=== PATIENT | male | born 1990 | race Caucasian/White ===

== ENCOUNTER 2020-02-17 15:14 | Emergency (ER) | payer MEDICAID, SELFPAY ==
--- NOTE | ~2020-02-17 | XR_ITS ---
XR finger 1st LT min 2V DATE: 02/17/2020 15:44 INDICATION: Nail through the distal first digit TECHNIQUE: 3 views of left first digit COMPARISON: None FINDINGS: A large nail extends through the soft tissues of the distal portion of the first digit, ski rting along the anterior aspect of the lateral neck and the tuft of the distal phalanx. Note tuft pen etration or fracture is evident. No dislocation at the first metacarpophalangeal or interphalangeal j oints. No other radiopaque foreign body. IMPRESSION: Soft tissue foreign body; no fracture or dislocation detected Reviewed, dictated and finalized at location A.
[2020-02-17 15:19] VITALS: BP 172/91; PULSE 101; RESP 18; TEMP 36.9; O2SAT 100
[2020-02-17] MEDS: TETANUS,DIPHTHERIA,AC PERTUSSIS ADULT (0.5 ML) BOOSTRIX IM (15:50)
[2020-02-17] MEDS: ceFAZolin SODIUM 1 GM VIAL IM (15:50)
--- NOTE | 2020-02-17 15:51 | ED.UPPEXIN ---
HPI - Extremity Injury (Upper) General Chief Complaint: Extremity Injury, Upper Stated Complaint: nail in thumb Time Seen by Provider: 02/17/20 15:21 Source: patient Mode of arrival: ambulatory Limitations: no limitations History of Present Illness HPI narrative: This is a 29 year old male that presents to the ER for nailgun injury sustained just prior to arrival. Reports he shot the left thumb with a nail accidentally. He is unsure of his last tetanus vaccine. Denies decreased ROM or numbness. Related Data Allergies Allergy/AdvReac Type Severity Reaction Status Date / Time BLEACH Allergy Unknown RASH Uncoded 01/27/19 18:35 Review of Systems Review of Systems: Narrative: CONSTITUTIONAL: Denies fever SKIN: Reports nailgun injury MUSCULOSKELETAL: Reports myalgia. NEUROLOGIC: Denies numbness All systems reviewed & are unremarkable except as noted in HPI and below PMFSH Social History Social History (Updated 02/17/20 @ 15:54 by Ofe Wang PA-C) Smoking status: Current every day smoker Substance use: never Exam Narrative: Exam Narrative: GENERAL: Well-appearing, well-nourished, and in no acute distress. HEAD: Normocephalic, atraumatic. EYES: EOMI. EXTREMITIES: Normal range of motion. No edema. Left thumb distal phalanx soft tissue with nail in it insertion point at the radial aspect proximally and exit distally toward the ulnar aspect SKIN: Warm, dry, no rash. NEURO: No focal deficits. Alert and oriented x3. PSYCH: Normal mood and affect Course Consultations Consultation #1: Spoke with Dr. Rodas about patient and work-up will follow-up in clinic Date: 02/17/20 Time: 18:33 Vital Signs Vital signs: Vital Signs Temperature 98.4 F 02/17/20 15:19 Pulse Rate 101 H 02/17/20 15:19 Respiratory Rate 18 02/17/20 15:19 Blood Pressure 172/91 H 02/17/20 15:19 Pulse Oximetry 100 02/17/20 15:19 Temperature 98.4 F 02/17/20 15:19 Pulse Rate 101 H 02/17/20 15:19 Respiratory Rate 18 02/17/20 15:19 Blood Pressure 172/91 H 02/17/20 15:19 Pulse Oximetry 100 02/17/20 15:19 Procedures Foreign Body Removal Foreign Body #1: Foreign Body Removal Date: 02/17/20 Foreign Body Removal Time: 18:32 Site: left and upper extremity Description of foreign body: other (nail) Technique: manual removal Confirmed by:: direct visualization and radiograph Complications: none Post-procedure exam: awake, alert Neurovascular: normal distal pulse, normal capillary fill and distal motor function normal Foreign Body Removal Narrative: Successful removal of nail in the left first finger MDM - Extremity Injury (Upper) MDM Narrative Medical decision making narrative: Patient presents the emergency department for nail gun injury today. Nail successfully removed from the thumb. Finger x-ray is without bony abnormalities. Patient's wound was thoroughly irrigated. He was updated on tetanus. He was given a dose of IM antibiotic in the ED. He will be sent home on oral antibiotics. Spoke with Dr. Rodas about patient and work-up will follow-up in clinic Imaging Data Radiologist's impression: ITS Impressions Finger X-Ray 02/17/20 15:50 IMPRESSION: Soft tissue foreign body; no fracture or dislocation detected Critical Care Time Critical Care Time Critical Care Time: No Discharge Plan Discharge Clinical Impression: Foreign body of finger of left hand Qualifiers: Encounter type: initial encounter Qualified Code(s): S60.459A - Superficial foreign body of unspecified finger, initial encounter Patient Disposition: Home, Self-Care Condition: Stable Instructions: Antibiotic Form, Puncture Wound (ED) Additional Instructions: Return to the emergency department if you experience fever, redness or swelling of your wound, abnormal drainage from your wound, or any other symptoms that are concerning to you. Take antibiotic as prescribed.
[2020-02-17 18:57] VITALS: BP 145/91; PULSE 104; RESP 19; O2SAT 100
== END 2020-02-17 18:59 | disposition home or self-care (01) ==
PROVIDERS: Emergency Provider Emergency Medicine
DX: S61.042A Puncture wound with foreign body of left thumb without damage to nail, initial encounter (principal); F17.200 Nicotine dependence, unspecified, uncomplicated; Z23 Encounter for immunization; W29.4XXA Contact with nail gun, initial encounter
CPT/HCPCS: 73140; 90471; 90715; 96372; 99283; A9270; J0690

== ENCOUNTER 2021-11-17 15:57 | Emergency (ER) | payer BC, SELFPAY ==
[2021-11-17 16:33] VITALS: BP 120/78; PULSE 100; RESP 20; TEMP 36.7; O2SAT 100
--- NOTE | 2021-11-17 16:49 | ED.GENADULT ---
HPI - General Adult General Chief complaint: Unspecified Stated complaint: med refill Time Seen by Provider: 11/17/21 16:17 Source: patient and RN notes reviewed Mode of arrival: ambulatory Limitations: no limitations History of Present Illness HPI narrative: Patient presents today requesting a refill of his medication. He just got out of the [facility] yesterday and needs a refill of his medication until he can make an appointment with a psychiatrist or primary care provider. Patient takes Remeron 30 mg at night, BuSpar 15 mg twice daily, and Zyprexa 15 mg daily. These doses were verified with the nurse at the longterm. Also requesting a prescription for some cold tar shampoo for his psoriasis on his face. Diagnoses include Bipolar 2 disorder, and psychosis NOS. MD complaint: Medication refill Related Data Home Medications Medication Instructions Recorded Confirmed buspirone [BuSpar] 15 mg PO BID 11/17/21 11/17/21 mirtazapine [Remeron] 30 mg PO HS 11/17/21 11/17/21 olanzapine [Zyprexa] 15 mg PO DAILY 11/17/21 11/17/21 Allergies Allergy/AdvReac Type Severity Reaction Status Date / Time BLEACH Allergy Unknown RASH Uncoded 01/27/19 18:35 Review of Systems Review of Systems: CONSTITUTIONAL: Denies body aches, fever, chills, or sweats. EYES: Denies visual changes, redness, or discharge. ENT: Denies rhinorrhea, congestion, sore throat, or otalgia. CARDIOVASCULAR: Denies chest pain, palpitations, or edema. RESPIRATORY: Denies cough or dyspnea. GASTROINTESTINAL: Denies abdominal pain, nausea, vomiting, or diarrhea. GENITOURINARY: Denies dysuria or hematuria. SKIN: Denies rash, itching, or wounds. MUSCULOSKELETAL: Denies back pain, joint pain, or myalgia. NEUROLOGIC: Denies headache, numbness, tingling, or weakness. [facility] Past Medical History Medical History (Updated 11/17/21 @ 16:51 by Dafne Ritchie, YOSEF, BC) Bipolar 2 disorder Psoriasis Unspecified psychosis Social History Social History Smoking status: Current every day smoker Substance use: never Comments At time of signature, I have reviewed and agree with nursing past medical, surgical, social and family history unless otherwise noted. Please see nursing chart for further information. There is no relevant family history pertinent to the presenting complaint Exam Narrative: GENERAL: Well-appearing, well-nourished, and in no acute distress. HEAD: Normocephalic, atraumatic. EYES: EOMI. No redness or drainage. Conjunctivae normal. ENT: Mucous membranes pink and moist. NECK: Normal AROM. CHEST: No respiratory distress. EXTREMITIES: Normal range of motion. No edema. SKIN: Warm, dry, no rash. Capillary refill normal. Normal skin turgor. NEURO: No focal deficits. Alert and oriented x3. Gait steady. PSYCH: Normal affect. No signs of depression or anxiety. Course Course Level of Care: Express Care Visit Vital Signs Vital signs: Vital Signs Temperature 98.1 F 11/17/21 16:33 Pulse Rate 100 11/17/21 16:33 Respiratory Rate 20 11/17/21 16:33 Blood Pressure 120/78 11/17/21 16:33 Pulse Oximetry 100 11/17/21 16:33 Temperature 98.1 F 11/17/21 16:33 Pulse Rate 100 11/17/21 16:33 Respiratory Rate 20 11/17/21 16:33 Blood Pressure 120/78 11/17/21 16:33 Pulse Oximetry 100 11/17/21 16:33 Reviewed Medical Decision Making Differential Diagnosis Differential Diagnosis: Medication refill Vital Signs Vital Signs: Vital Signs Temperature 98.1 F 11/17/21 16:33 Pulse Rate 100 11/17/21 16:33 Respiratory Rate 20 11/17/21 16:33 Blood Pressure 120/78 11/17/21 16:33 Pulse Oximetry 100 11/17/21 16:33 Temperature 98.1 F 11/17/21 16:33 Pulse Rate 100 11/17/21 16:33 Respiratory Rate 20 11/17/21 16:33 Blood Pressure 120/78 11/17/21 16:33 Pulse Oximetry 100 11/17/21 16:33 Critical Care Time Critical Care Memo
[2021-11-17 16:56] VITALS: RESP 20
== END 2021-11-17 17:00 | disposition home or self-care (01) ==
PROVIDERS: Emergency Provider Nurse Practitioner
DX: Z76.0 Encounter for issue of repeat prescription (principal); F17.200 Nicotine dependence, unspecified, uncomplicated; F31.81 Bipolar II disorder
CPT/HCPCS: 99211; G0463

== ENCOUNTER 2022-09-16 12:06 | Emergency (ER) | payer BC, SELFPAY ==
[2022-09-16 14:40] VITALS: BP 145/82; PULSE 85; RESP 12; TEMP 36.4; O2SAT 100
--- NOTE | 2022-09-16 14:42 | ED.GENADULT ---
HPI - General Adult General Chief complaint: Urogenital-Male Stated complaint: std testing Time Seen by Provider: 09/16/22 14:43 Source: patient Mode of arrival: ambulatory Limitations: no limitations History of Present Illness HPI narrative: 13-year-old male patient presents to the [facility] with request for STD evaluation. Patient states that his female partner recently told him that she was diagnosed with Trichomonas. Patient states he does not have any symptoms today but would like to be tested. Patient states he had a full panel STD testing about a year ago and everything came up negative. Patient's states that his female partner has been his only partner for the last 2 years. Patient states he only has intercourse with movement. Related Data Allergies Allergy/AdvReac Type Severity Reaction Status Date / Time No Known Allergies Allergy Verified 09/16/22 14:48 Review of Systems Review of Systems: CONSTITUTIONAL: Denies fever, chills, or sweats. EYES: Denies visual changes, redness, or discharge. ENT: Denies rhinorrhea, congestion, sore throat, or otalgia. CARDIOVASCULAR: Denies chest pain, palpitations, or edema. RESPIRATORY: Denies cough or dyspnea. GASTROINTESTINAL: Denies abdominal pain, nausea, vomiting, or diarrhea. GENITOURINARY: Denies dysuria or hematuria. SKIN: Denies rash or itching. MUSCULOSKELETAL: Denies back pain, joint pain, or myalgia. NEUROLOGIC: Denies headache, numbness, or weakness. PSYCHIATRIC: Denies anxiety or depression. PMFSH Past Medical History Medical History Bipolar 2 disorder Psoriasis Unspecified psychosis Social History Social History Smoking status: Current every day smoker Substance use: never Comments At the time of my signature I agree with nursing past medical history, surgical, social, and family history. There is no relevant family history pertinent to the presenting complaint. Exam Narrative: GENERAL: Well-appearing, well-nourished, and in no acute distress. HEAD: Normocephalic, atraumatic. EYES: PERRLA and EOMI. ENT: Nares clear, no rhinorrhea or epistaxis. Mucous membranes moist. NECK: Supple. No lymphadenopathy CHEST: Clear to auscultation. No respiratory distress. HEART: Regular rate and rhythm. No murmur heard. Normal peripheral pulses. ABDOMEN: Soft, nontender, nondistended, normal active bowel sounds. No CVA tenderness on percussion EXTREMITIES: Normal range of motion. No edema. SKIN: Warm, dry, no rash. NEURO: No focal deficits. Alert and oriented x3. Course Course Level of Care: Express Care Visit Vital Signs Vital signs: Vital signs reviewed. Medical Decision Making MDM Narrative Medical decision making narrative: Discussed with patient that we will go ahead and test him today for gonorrhea, chlamydia and Trichomonas. Discussed with him we will go ahead and give him treatment for all and we will call him with the results regardless if they are negative or positive. Patient verbalized understanding and is in agreement with plan of care. Differential Diagnosis Differential Diagnosis: Differential diagnosis: Uncomplicated lower UTI, uncomplicated UTI, polynephritis, penile trauma,balanoposthitis, phimosis, paraphimosis, testicular torsion, epididymitis, prostatitis, varicocele, spermatocele, hydrocele, hernia. Gonorrhea, chlamydia, Trichomonas, bacterial vaginosis, herpes, HIV, yeast infection, urinary tract infection. Critical Care Time Critical Care Time Critical Care Time: No Discharge Plan Discharge Clinical Impression: Concern about sexually transmitted disease in male without diagnosis Patient Disposition: Home, Self-Care Condition: Stable Instructions: Antibiotic Form, Sexually Transmitted Diseases (ED) Additional Instructions: Please do not engage in sexual activity for at least 7 days after being treated for
[2022-09-16] MEDS: cefTRIAXone 500 MG, LIDOCAINE HCL 1% LOCAL INJ 1 ML IM (15:01)
== END 2022-09-16 15:14 | disposition home or self-care (01) ==
PROVIDERS: Emergency Provider Nurse Practitioner Family
DX: Z20.2 Contact with and (suspected) exposure to infections with a predominantly sexual mode of transmission (principal); F17.290 Nicotine dependence, other tobacco product, uncomplicated; L40.9 Psoriasis, unspecified
CPT/HCPCS: 87491; 87591; 87661; 96372; 99213; G0463; J0696

== ENCOUNTER 2022-10-14 10:41 | Emergency (ER) | payer BC, SELFPAY ==
[2022-10-14 11:01] VITALS: BP 140/83; PULSE 92; RESP 16; TEMP 36.6; O2SAT 99
--- NOTE | 2022-10-14 11:39 | ED.SKABFB ---
HPI - Skin/Abscess/Foreign Bdy General Chief complaint: Skin/Abscess/Foreign Body Stated complaint: non healing wounds Time Seen by Provider: 10/14/22 11:33 Source: patient, RN notes reviewed and old records reviewed Mode of arrival: ambulatory Limitations: no limitations History of Present Illness HPI narrative: 32-year-old male presents to the [facility] with a ?abscess? to the right 3rd finger, MCP joint Patient also has outer antecubital left area redness, swelling to an unhealing wound Related Data Allergies Allergy/AdvReac Type Severity Reaction Status Date / Time No Known Allergies Allergy Verified 10/14/22 11:35 Review of Systems Review of Systems: All systems reviewed & are unremarkable except as noted in HPI and below Constitutional: Constitutional: Reports no additional constitutional complaints Eyes: Eyes: Reports no additional eye complaints ENT: Reports system reviewed and no additional complaints, except as documented Cardiovascular: Cardiovascular: Reports no additional cardiovascular complaints, Denies chest pain and Denies dyspnea Respiratory: Respiratory: Reports no additional respiratory complaints, Denies chest congestion, Denies cough and Denies dyspnea Gastrointestinal: Gastrointestinal: Reports no additional gastrointestinal complaints, Denies abdominal pain, Denies nausea and Denies vomiting Musculoskeletal: Musculoskeletal: Reports no additional musculoskeletal complaints Integumentary/Breasts: Skin/Breast: Reports as per HPI and Reports erythema Neurologic: Reports system reviewed and no additional complaints, except as documented Psychiatric: Psychiatric: Reports no additional psychiatric complaints Allergic/Immunologic: Allergic/Immunologic: Reports no additional allergic/immunologic complaints PMFSH Past Medical History Medical History Bipolar 2 disorder Psoriasis Unspecified psychosis Social History Social History Smoking status: Current every day smoker Substance use: never Comments At the time of my signature, I reviewed and agree with the nursing past medical, surgical, social, and family history. There is no relevant family history pertinent to the patient complaint. Exam Const: General: cooperative, healthy appearing, comfortable, no acute distress, well developed, alert and well nourished Nutritional Appearance: well nourished Orientation/consciousness: patient oriented x3 Limitations: no limitations HENMT: Head: normal to inspection Ears: hearing grossly normal bilaterally and external ears normal Face/Nose/Sinus: Normal external nose present, Normal nares present, Normal nasal mucous membranes and turbinates present and normal facial exam Face and sinus: normal facial exam Mouth: Yes Normal oral and palatal mucosa present, Yes lip normal and Yes moist mucous membranes Throat: posterior oropharynx normal and uvula midline Eyes: General: appearance normal, both eyes and all related structures Alignment and Position: alignment normal Periorbital: periorbital findings normal Conjunctivae: conjunctivae normal Pupils: Equal, round and reactive pupils present EOM: EOMs intact bilaterally Neck: Neck: normal visual inspection, full ROM, no lymphadenopathy and no meningeal signs Chest: Chest palpation & inspection: normal inspection of the chest Resp: Effort & Inspection: normal respiratory effort and able to speak in complete sentences Auscultation: clear to auscultation bilaterally, no crackles, no rales, no rhonchi and no wheezes Cardio: Rate: regular rate Rhythm: regular rhythm Back/Spine/Pelvis: Cervical Spine: cervical ROM normal Thoracic/Lumbar Spine: No thoracic spinal tenderness Skin: General skin exam: normal color and no rashes or lesions noted Lesions: no lesions Rashes: no rashes Other: Erythema noted to the 3rd MCP right hand. dr Smooth
== END 2022-10-14 11:49 | disposition home or self-care (01) ==
PROVIDERS: Emergency Provider Nurse Practitioner
DX: L03.113 Cellulitis of right upper limb (principal); L03.114 Cellulitis of left upper limb; L40.9 Psoriasis, unspecified
CPT/HCPCS: 99213; G0463

== ENCOUNTER 2023-08-11 15:35 | Emergency (ER) | payer BC, SELFPAY ==
[2023-08-11 15:45] VITALS: BP 137/73; PULSE 91; RESP 16; TEMP 37.7; O2SAT 99
--- NOTE | 2023-08-11 16:12 | ED.GENADULT ---
HPI - General Adult General Chief complaint: Skin/Abscess/Foreign Body Stated complaint: Skin irritation Source: patient Mode of arrival: ambulatory Limitations: no limitations History of Present Illness HPI narrative: Patient presents for evaluation of skin lesions to bilateral upper extremities. 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 He has been scratching the areas and now has redness surrounding several the skin lesions. No fever, chills nausea, vomiting, purulent drainage. He is not diabetic. He had some keflex at home so he took a few doses over the past two days. Related Data Allergies Allergy/AdvReac Type Severity Reaction Status Date / Time No Known Allergies Allergy Verified 08/11/23 15:44 Review of Systems Review of Systems: CONSTITUTIONAL: Denies fever, chills, or sweats. EYES: Denies visual changes, redness, or discharge. ENT: Denies rhinorrhea, congestion, sore throat, or otalgia. CARDIOVASCULAR: Denies chest pain, palpitations, or edema. RESPIRATORY: Denies cough or dyspnea. GASTROINTESTINAL: Denies abdominal pain, nausea, vomiting, or diarrhea. GENITOURINARY: Denies dysuria or hematuria. SKIN: Reports abrasions to bilateral hands and forearms with some surrounding redness MUSCULOSKELETAL: Denies back pain, joint pain, or myalgia. NEUROLOGIC: Denies headache, numbness, dizziness, or weakness. PSYCHIATRIC: Denies anxiety or depression. PMFSH Past Medical History Medical History Bipolar 2 disorder Psoriasis Unspecified psychosis Surgical History Surgical History No pertinent past surgical history Family History Family History Mother Family history non-contributory Social History Social History Smoking status: Current every day smoker Tobacco type: cigarettes and smokeless tobacco Substance use: never Gender identity (if verbalized by the patient): Male Spiritual care concerns: No Exam Narrative: GENERAL: Well-appearing, well-nourished, and in no acute distress. HEAD: Normocephalic, atraumatic. EYES: PERRLA and EOMI. ENT: Nares clear, no rhinorrhea or epistaxis. Mucous membranes moist. Oropharynx without tonsillar hypertrophy exudate or other lesions. Bilateral TMs pearly [place] nonbulging NECK: Supple. No adenopathy or masses. No carotid bruits or JVD CHEST: Clear to auscultation. No respiratory distress. No wheezes rales or rhonchi HEART: Regular rate and rhythm. No murmur heard. Normal peripheral pulses. ABDOMEN: Soft, nontender, nondistended, normal active bowel sounds. EXTREMITIES: Normal range of motion. No edema. SKIN: there are several scabbed lesions noted to bilateral hands and forearms with small amount of surrounding erythema. NEURO: No focal deficits. Alert and oriented x3. PSYCH: Normal mood and affect. Course Course Emergency Course: This is a 32-year-old male who presented for evaluation of redness surrounding several abrasions in scabbed lesions. He has already taken a few doses of Keflex. I do not appreciate any fluctuance or purulent drainage. Will start doxycycline. Follow-up with primary provider. Go to the emergency department for worsening symptoms. Advised on wound care practices. Patient in agreement with plan of care. Level of Care: Express Care Visit Vital Signs Vital signs: Vital Signs Temperature 37.7 C H 08/11/23 15:45 Pulse Rate 91 08/11/23 15:45 Respiratory Rate 16 08/11/23 15:45 Blood Pressure 137/73 08/11/23 15:45 Pulse Oximetry 99 08/11/23 15:45 Oxygen Delivery Room Air 08/11/23 15:45 Temperature 37.7 C H 08/11/23 15:45 Pulse Rate 91 08/11/23 15:45 Respiratory Rate 16 08/11/23 15:45
== END 2023-08-11 16:13 | disposition home or self-care (01) ==
PROVIDERS: Emergency Provider Nurse Practitioner
DX: L98.9 Disorder of the skin and subcutaneous tissue, unspecified (principal); L08.9 Local infection of the skin and subcutaneous tissue, unspecified; F17.210 Nicotine dependence, cigarettes, uncomplicated; F17.290 Nicotine dependence, other tobacco product, uncomplicated; L40.9 Psoriasis, unspecified
CPT/HCPCS: 99213; G0463

== ENCOUNTER 2023-09-17 16:27 | Emergency (ER) | payer BC, SELFPAY ==
[2023-09-17 16:44] VITALS: BP 154/81; PULSE 105; RESP 16; TEMP 37.1; O2SAT 99
--- NOTE | 2023-09-17 17:16 | ED.EYEPROB ---
HPI - Eye Problem General Chief complaint: Eye Problems Stated complaint: Left Eye/Hands Irritation Time Seen by Provider: 09/17/23 17:17 Source: patient, RN notes reviewed and old records reviewed Mode of arrival: ambulatory Limitations: no limitations History of Present Illness HPI Narrative: 33-year-old male presents to the [facility] with complaints of left eye pain and hand wounds. Patient feels like he just got a piece of metal in his left eye. Multiple open wounds to his hands, no erythema. Patient reports that his fingers are mildly swollen and painful. Concern for infection. Reports that he was seen at [facility] ER last night, they would not do a CT of his head but did update his tetanus shot. Related Data Allergies Allergy/AdvReac Type Severity Reaction Status Date / Time No Known Allergies Allergy Verified 09/17/23 16:59 Review of Systems Review of Systems: All systems reviewed & are unremarkable except as noted in HPI and below Constitutional: Constitutional: Reports no additional constitutional complaints Eyes: Eyes: Reports as per HPI ENT: Reports system reviewed and no additional complaints, except as documented Cardiovascular: Cardiovascular: Reports no additional cardiovascular complaints, Denies chest pain and Denies dyspnea Respiratory: Respiratory: Reports no additional respiratory complaints, Denies chest congestion, Denies cough and Denies dyspnea Gastrointestinal: Gastrointestinal: Reports no additional gastrointestinal complaints, Denies abdominal pain, Denies nausea and Denies vomiting Musculoskeletal: Musculoskeletal: Reports no additional musculoskeletal complaints Integumentary/Breasts: Skin/Breast: Reports as per HPI Neurologic: Reports system reviewed and no additional complaints, except as documented Psychiatric: Psychiatric: Reports no additional psychiatric complaints Allergic/Immunologic: Allergic/Immunologic: Reports no additional allergic/immunologic complaints [facility] Past Medical History Medical History Bipolar 2 disorder Psoriasis Unspecified psychosis Surgical History Surgical History No pertinent past surgical history Family History Family History Mother Family history non-contributory Social History Social History Smoking status: Current every day smoker Tobacco type: cigarettes and smokeless tobacco Substance use: never Gender identity (if verbalized by the patient): Male Spiritual care concerns: No Comments At the time of my signature, I reviewed and agree with the nursing past medical, surgical, social, and family history. There is no relevant family history pertinent to the patient complaint. Exam Const: General: cooperative, healthy appearing, comfortable, no acute distress, well developed, alert and well nourished Nutritional Appearance: well nourished Orientation/consciousness: patient oriented x3 Limitations: no limitations HENMT: Head: normal to inspection Ears: hearing grossly normal bilaterally and external ears normal Face/Nose/Sinus: Normal external nose present, Normal nares present, Normal nasal mucous membranes and turbinates present, normal facial exam and face symmetric Face and sinus: normal facial exam and face symmetric Mouth: Yes Normal oral and palatal mucosa present, Yes lip normal and Yes moist mucous membranes Throat: posterior oropharynx normal and uvula midline Eyes: General: appearance normal, both eyes and all related structures Visual Anne: normal visual anne by confrontation Alignment and Position: alignment normal Periorbital: periorbital findings normal Sclera: sclerae normal Cornea: corneas abnormal on the left (Patient with no foreign bodies under lids, upper lid inverted) fluorescein used, abr
== END 2023-09-17 17:37 | disposition home or self-care (01) ==
PROVIDERS: Emergency Provider Nurse Practitioner
DX: S05.02XA Injury of conjunctiva and corneal abrasion without foreign body, left eye, initial encounter (principal); F17.210 Nicotine dependence, cigarettes, uncomplicated; X58.XXXA Exposure to other specified factors, initial encounter
CPT/HCPCS: 99213; A9270; G0463

== ENCOUNTER 2024-01-08 15:39 | Emergency (ER) | payer OTHER, MEDICAID, SELFPAY ==
--- NOTE | 2024-01-08 15:49 | ED.ABDPAIN ---
HPI - Abdominal Pain General Stated Complaint: stomach issue, sweet smelling poop Time Seen by Provider: 01/08/24 15:50 Source: patient Mode of arrival: ambulatory Limitations: no limitations History of Present Illness HPI narrative: Sandeep is a 33-year-old male patient presenting to the clinic today with complaints of stomach issues. He reports he is having some left lower quadrant abdominal discomfort and some sweet smelling poop that started today. He reports he read on [employer] that he may have C diff. states he just finished up some antibiotics for skin infection/dental infection. Temperature is 37.7? in the clinic today blood pressure is elevated with an elevated heart rate. Related Data Allergies Allergy/AdvReac Type Severity Reaction Status Date / Time No Known Allergies Allergy Verified 01/08/24 15:51 Review of Systems Review of Systems: Pertinent positives per HPI. Patient denies any fever, chills, rash, headache, visual changes, dizziness, cough, shortness of breath, chest pain, palpitations, nausea, vomiting, diarrhea, constipation, or any urinary issues. PMFSH Past Medical History Medical History Bipolar 2 disorder Psoriasis Unspecified psychosis Surgical History Surgical History No pertinent past surgical history Family History Family History Mother Family history non-contributory Social History Social History Smoking status: Current every day smoker Tobacco type: cigarettes and smokeless tobacco Substance use: never Gender identity (if verbalized by the patient): Male Spiritual care concerns: No Comments At the time of my signature, I reviewed and agree with the nursing past medical, surgical, social, and family history. There is no relevant family history pertinent to the patient complaint. Exam Narrative: General: Well-developed, well nourished, in no apparent distress. Very poor hygiene Head: Normocephalic, atraumatic. Cardio: Skin color pink warm, appears well-perfused Resp: Even rise and fall of the chest wall, normal respirations, no retractions Abdomen: Nondistended, reporting tender over the left lower quadrant Course Course Emergency Course: Portions of this record may have been created with voice recognition software. Level of Care: Express Care Visit Vital Signs Vital signs: Vital signs reviewed MDM - Abdominal Pain MDM Narrative Medical decision making narrative: At the time of visit patient is resting comfortably on the exam table. Patient appears to be nontoxic. Plan: I suspect patient has left lower quadrant abdominal discomfort with sweet smelling stool. Explained to the patient that I am only able to do x-rays and urinalysis and we are not able to test the patient's stool today. He is wanting antibiotic treatment for C diff today. Explained that I cannot prescribe him that medication unless his stool is tested. Told him that it send him to the ER for further evaluation and he became upset and said well then there is no reason for you to see me today and walked out of the clinic. Differential Diagnosis Differential diagnosis: Likely abdominal pain, acute appendicitis, calculus of kidney, constipation, diverticulitis, gastroenteritis, pancreatitis and small bowel obstruction Discharge Plan Discharge Clinical Impression: Abdominal pain, LLQ Patient Disposition: Elopement After Seen by Prov Condition: Stable Prescriptions: No Action cephalexin 500 mg capsule 500 mg PO Q8H 7 Days Qty: 21 0RF ciprofloxacin HCl 0.3 % drops See Rx Instructions EACH EYE .COMPLEX Qty: 2.5 0RF Rx Instructions: put 1-2 drps in affected eye(s) every 2hr up to 8 times/day x2days; then 4 times/day x5days
[2024-01-08 15:52] VITALS: BP 169/82; PULSE 111; RESP 16; TEMP 37.7; O2SAT 99
== END 2024-01-08 15:55 | disposition left against medical advice (07) ==
PROVIDERS: Emergency Provider Nurse Practitioner Family
DX: R10.32 Left lower quadrant pain (principal); L40.9 Psoriasis, unspecified; F17.210 Nicotine dependence, cigarettes, uncomplicated; F17.290 Nicotine dependence, other tobacco product, uncomplicated
CPT/HCPCS: 99211; G0463

== ENCOUNTER 2024-05-05 13:18 | Emergency (ER) | payer OTHER, MEDICAID, SELFPAY ==
[2024-05-05 13:30] VITALS: BP 141/71; PULSE 82; RESP 16; TEMP 37; O2SAT 100
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
== END 2024-05-05 14:00 | disposition home or self-care (01) ==
PROVIDERS: Emergency Provider Nurse Practitioner
DX: T24.101A Burn of first degree of unspecified site of right lower limb, except ankle and foot, initial encounter (principal); X03.0XXA Exposure to flames in controlled fire, not in building or structure, initial encounter; F17.210 Nicotine dependence, cigarettes, uncomplicated; F17.290 Nicotine dependence, other tobacco product, uncomplicated; L40.9 Psoriasis, unspecified
CPT/HCPCS: 99213; G0463